=== PATIENT | female | born 1950 | race African-American/Black ===

== ENCOUNTER 2016-12-12 13:32 | Inpatient (IN) | payer MEDICARE, OTHER ==
[~2016-12-12] VITALS: Ht 162.6 cm; Wt 83.5 kg
[~2016-12-12 13:32] MED LIST: CATAPRES0.1 MG PO; CYMBALTA30 MG PO; DILAUDID4 MG PO; DURAGESIC1 PATCH .1 TD; HYDROCHLOROTHIA25 MG PO; K-DUR20 MEQ PO; MAG-OXIDE400 MG PO; MELATONIN 3 MG1 TAB PO; METAMUCIL PACKE1 PKT PO; NORVASC5 MG PO; PROTONIX40 MG PO; QUESTRAN PACK4 G/PKT PO; VALIUM10 MG; ZOCOR20 MG PO
--- NOTE | 2016-12-12 13:35 | NUR ---
RECIEVED ON REHAB TO ROOM 0746X;ORIENTED TO ROOM AND SURROUNDINGS.CL IN REACH.
[2016-12-12] MEDS ORDERED: LIDODERM 5 %1 PATCH TRANSDERM (14:08)
[2016-12-12] MEDS ORDERED: PROZAC40 MG PO (14:10)
[2016-12-12] MEDS ORDERED: PREDNISONE10 MG PO (14:12)
[2016-12-12] MEDS ORDERED: PATOWN MISC (14:18)
[2016-12-12] MEDS ORDERED: MORPHINE SULFAT60 M5 PO (14:23)
[2016-12-12] MEDS ORDERED: OXY IR30 MG PO (14:27)
[2016-12-12] MEDS ORDERED: GABAPENTIN100 MG PO (14:28)
[2016-12-12 16:49] VITALS: BP 97/56; BMI 31.7
[2016-12-12 20:00] VITALS: BP 105/62
--- NOTE | 2016-12-12 20:10 | NUR ---
SIT UP IN BED AND WATCH TV.
--- NOTE | 2016-12-13 01:30 | NUR ---
PT RESTING WITH EYES CLOSED, SEMI SAMUELS POSITION, NO S/S OF ACUTE DISTRESS. RESPIRATIONS REGULAR AND UNLABORED.
--- NOTE | 2016-12-13 01:51 | NUR ---
RESTING QUIETLY IN BED, EYE CLOSE, BED LOW, CALL LIGHT WITHIN REACH.
--- NOTE | 2016-12-13 03:53 | NUR ---
C/O PAIN ON BACK, ON A SCALE OF 8, PAIN MED GIVEN.
[2016-12-13 06:55] LABS: BASOPHILS 0.4 % (0-2); EOSINOPHILS 0.4 % (0-7); HEMATOCRIT 35.2 % (36.0-48.0); IMMATURE GRANULOCYTES 0.1 % (0-5); LYMPHOCYTES 26.5 % (15-50); MCH 30.2 pg (26.0-34.0); MCHC 31.3 g/dL (31.0-37.0); MCV 96.7 fL (80.0-100.0); MEAN PLATELET VOLUME 10.3 fL (7.4-10.4); NEUTROPHILS 64.6 % (40-80); PLATELET COUNT 246 10x3/uL (130-400); RBC 3.64 10x6/uL (4.00-5.40); RDW 15.8 % (11.5-14.5); WBC 7.6 10x3/uL (4.8-10.8)
[2016-12-13 07:12] LABS: ANION GAP 7.4 mmol/L (8-16); CALCIUM 8.3 mg/dL (8.5-10.1); CARBON DIOXIDE 31.6 mmol/L (21.0-32.0)
--- NOTE | 2016-12-13 08:00 | NUR ---
SHIFT ASSMT COMPLETED,DENIES NEEDS.UP IN WC FOR BREAKFAST.CL IN REACH.
[2016-12-13 08:54] VITALS: BP 136/80
[2016-12-13 09:47] VITALS: Ht 162.6 cm; Wt 83.5 kg
--- NOTE | 2016-12-13 12:00 | NUR ---
SITTING UP IN WC.DENIES NEEDS AT PRESENT.
--- NOTE | 2016-12-13 16:00 | NUR ---
denies needs.cl in reach.
[2016-12-13 19:06] VITALS: BP 116/64
--- NOTE | 2016-12-13 19:25 | NUR ---
PT UP TO NURSING STATION, PROPELLED SELF PER W/C. REQUESTED PERSONAL CARE ITEMS, PT SMILES FREELY, CONVERSIVE. RESPIRATIONS REGULAR AND UNLABORED.
--- NOTE | 2016-12-14 01:15 | NUR ---
PT AWAKE IN ROOM SITTING IN WHEELCHAIR, PT REQUESTED A SNACK OF LEMON CHEVAK SODA AND TWO ORANGE SHERBERT, OBTAINED FOR PT. PT IS CONVERSIVE, ALERT AND ORIENTED. PT STATES HER PAIN IS MANAGABLE.
--- NOTE | 2016-12-14 04:31 | NUR ---
PT RESTING QUIETLY IN ROOM, RESPIRATIONS REGULAR AND UNLABORED, EYES CLOSED.
--- NOTE | 2016-12-14 07:47 | NUR ---
RESTING QUIETLY IN BED. EYES CLOSED. CALL LIGHT IN REACH
--- NOTE | 2016-12-14 16:28 | NUR ---
IN W/C ROLLING AROUND IN YARD.
[2016-12-14 16:44] VITALS: BP 130/74
--- NOTE | 2016-12-14 19:48 | NUR ---
pt out of room with visitors.
[2016-12-14 20:32] VITALS: BP 122/70
--- NOTE | 2016-12-15 01:45 | NUR ---
PT AWAKE IN ROOM, PT STATES SHE IS WORRIED AND HAS TO MAKE A DECISION REGARDING MOVING. PT REQUESTED TO BE ABLE TO GO OUTSIDE SO SHE COULD THINK, ASSISTED PT OUTSIDE TO THERAPY DECK. PT STAYED OUT FOR ABOUT 15 MINUTES, STATED SHE WAS ABLE TO CLEAR HER HEAD AND DECIDED THAT HER FOCUS NEEDED TO BE ON REHAB AND SHE WOULD MAKE A DECISION LATER REGARDING DOWNSIZING AND MOVING.
--- NOTE | 2016-12-15 03:34 | NUR ---
PT RESTING QUIETLY IN ROOM, PT RESPIRATIONS REGULAR AND UNLABORED, NO S/S OF ACUTE DISTRESS. EYES CLOSED.
--- NOTE | 2016-12-15 08:22 | NUR ---
SITTING UP IN BED EATING BREAKFAST. CALL LIGHT IN REACH.
--- NOTE | 2016-12-15 12:37 | NUR ---
SITTING UP IN BED EATING LUNCH. DENIES INCREASED PAIN. USES W/C.
[2016-12-15 12:55] VITALS: BP 128/79
--- NOTE | 2016-12-15 18:16 | NUR ---
SITTING UP IN BED WATCHING TV. DENIES NEEDS. CALL LIGHT IN REACH
[2016-12-15 19:15] VITALS: BP 104/63
--- NOTE | 2016-12-15 19:30 | NUR ---
PT UP IN W/C AT SINK IN ROOM. ALERT & ORIENTED. NO O2. NO IV. PT HAS NO COMPLAINTS AT THIS TIME.
--- NOTE | 2016-12-15 23:30 | NUR ---
PT IN BED WITH HOB UP FOR COMFORT. EYES CLOSED. CHEST RISING AND FALLING. BED IN LOWEST POSITION AND CALL LIGHT WITHIN REACH.
--- NOTE | 2016-12-15 23:45 | NUR ---
PT UP IN W/C IN HALLWAY. PT CONVERSIVE, RESPIRATIONS REGULAR AND UNLABORED.
--- NOTE | 2016-12-16 03:30 | NUR ---
PT LYING IN BED. EYES CLOSED. RESPIRATIONS EVEN AND UNLABORED. BED IN LOWEST POSITION AND CALL LIGHT WITHIN REACH.
[2016-12-16 06:25] LABS: BASOPHILS 0.2 % (0-2); EOSINOPHILS 0.1 % (0-7); HEMATOCRIT 38.1 % (36.0-48.0); HEMOGLOBIN 12.1 g/dL (12-16); IMMATURE GRANULOCYTES 0.1 % (0-5); MCH 30.6 pg (26.0-34.0); MCHC 31.8 g/dL (31.0-37.0); MCV 96.5 fL (80.0-100.0); MONOCYTES 6.6 % (2-11); PLATELET COUNT 268 10x3/uL (130-400); RBC 3.95 10x6/uL (4.00-5.40); RDW 15.9 % (11.5-14.5)
[2016-12-16 06:36] LABS: ANION GAP 10.5 mmol/L (8-16); CALCIUM 9.1 mg/dL (8.5-10.1); CARBON DIOXIDE 32.8 mmol/L (21.0-32.0); POTASSIUM - SERUM 4.3 mmol/L (3.5-5.1)
[2016-12-16 08:38] VITALS: BP 116/66
--- NOTE | 2016-12-16 12:12 | NUR ---
SITTING IN W/C EATING LUNCH. DENIES NEEDS
--- NOTE | 2016-12-16 18:04 | NUR ---
SITTING IN W/C EATING SUPPER AND VISITING WITH SON. DR. TORRES WAS CONSULTED FOR THIS PT SINCE DR MELENDEZ NO LONGER PRACTICES MEDICINE IN CLINIC. HE WILL VISIT AGAIN TOMORROW AND READ CHART. PT C/O VAGINAL ODOR.
[2016-12-16 19:00] VITALS: BP 118/58
--- NOTE | 2016-12-16 19:15 | NUR ---
PT UP IN W/C VISITING WITH DAUGHTER. ALERT & ORIENTED. NO O2. NO IV. PT HAS NO COMPLAINTS AT THIS TIME.
--- NOTE | 2016-12-16 23:15 | NUR ---
PT IN BED WITH HOB UP FOR COMFORT. EYES CLOSED. CHEST RISING AND FALLING. BED IN LOWEST POSITION AND CALL LIGHT WITHIN REACH.
--- NOTE | 2016-12-17 01:00 | NUR ---
UP IN W/C AT DESK. SAYS SHE IS GOING TO VENDING ROOM FOR SNACK.
--- NOTE | 2016-12-17 04:45 | NUR ---
PT IN BED WITH HOB UP FOR COMFORT. RESTING QUIETLY. BED IN LOWEST POSITION AND CALL LIGHT WITHIN REACH.
--- NOTE | 2016-12-17 06:50 | NUR ---
Nutrition Follow Up: Pt is eating 79% on a regular diet. +BM 12/17/16. Meds and labs noted. Pt remains at low nutritional risk. RD following.
--- NOTE | 2016-12-17 08:00 | NUR ---
SHIFT ASSMT COMPLETED.DENIES NEEDS.BREAKFAST GIVEN.CL IN REACH.
[2016-12-17 09:27] VITALS: BP 124/75
[2016-12-17 19:05] VITALS: BP 143/71
--- NOTE | 2016-12-17 20:10 | NUR ---
PT. SITTING UP IN HER W/C. NO VOICED NEEDS AT THIS TIME. ASSESSMENT COMPLETED. CALL LIGHT WITHIN REACH.
--- NOTE | 2016-12-17 23:20 | NUR ---
PT. IN BED WITH HOB UP FOR COMFORT WITH EYES CLOSED AND RESP. EVEN. CALL LIGHT WITHIN REACH.
--- NOTE | 2016-12-18 03:07 | NUR ---
PT. UP IN W/C SHE JUST CAME OUT OF THE BR. PT. DENIES ANY NEEDS AND WILL BE GETTING BACK INTO BED SOON.
[2016-12-18 08:00] VITALS: BP 123/62
--- NOTE | 2016-12-18 08:00 | NUR ---
SHIFT ASSMT COMPLETED.DENIES NEEDS.UP IN WC.BREAKFAST GIVEN.
--- NOTE | 2016-12-18 12:00 | NUR ---
DENIES NEEDS.EATING LUNCH.
--- NOTE | 2016-12-18 16:00 | NUR ---
RESTING QUIETLY.CL IN REACH.
--- NOTE | 2016-12-18 17:09 | NUR ---
PATIENT ADMITTED TO REHAB FROM HOME. SHE HAS ALL DME THAT SHE NEEDS AT HOME FOR DISCHARGE. WILL CONTINUE TO FOLLOW WITH PATIENT UNTIL DISCHARGED
[2016-12-18 19:00] VITALS: BP 119/75
--- NOTE | 2016-12-18 19:30 | NUR ---
PT UP IN W/C, TALKING ON PHONE, DENIES ANY NEEDS, RESPIRATIONS REGULAR AND UNLABORED.
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
--- NOTE | 2016-12-19 04:24 | NUR ---
PT AWAKE AND VERBALIZES BEING HUNGRY. PROVIDED MARY CRACKERS AND PUDDING. PT CONVERSIVE. PT REQUESTED 06 MEDICATIONS EARLY ALONG WITH PAIN MED.
--- NOTE | 2016-12-19 08:04 | NUR ---
PT IS RESTING IN BED WITH EYES OPEN. ALERT AND ORIENTED X4. DENIES ACUTE PAIN OR DISCOMFORT AT THIS TIME. NO NEEDS VOICED. PT STATES SHE IS GOING UPSTAIRS FOR A PROCEDURE TOMORROW. SR'S ARE UP X 2 IN BED. CALL LIGHT AND BEDSIDE TABLE ARE WITHIN EASY REACH.
[2016-12-19 08:48] VITALS: BP 110/64
--- NOTE | 2016-12-19 09:54 | NUR ---
PT IS SHOWERING WITH OT. NO ACUTE DISTRESS NOTED.
--- NOTE | 2016-12-19 12:21 | NUR ---
REPORT CALLED TO [facility] PENDING DC AFTER PT EATS HER LUNCH.
--- NOTE | 2016-12-19 13:58 | NUR ---
PATIENT ADMITTED TO ACUTE FLOOR FROM REHAB DUE TO SURGIGAL PROCEDURE.
--- NOTE | 2016-12-19 16:01 | NUR ---
PT RETURNED TO REHAB. DISCHARGE CANCELLED. PT TO REMAIN IN REHAB.
--- NOTE | 2016-12-19 17:21 | NUR ---
PT RESTING, DENIES NEEDS. BED LOW. CL IN REACH.
--- NOTE | 2016-12-19 17:21 | NUR ---
PT RESTING IN BED, DENIES NEEDS. BED
[2016-12-19 18:59] VITALS: BP 113/57
--- NOTE | 2016-12-19 19:20 | NUR ---
PT IN W/C OUT OF ROOM.
--- NOTE | 2016-12-20 02:30 | NUR ---
PT UP IN W/C REQUESTED FOOD FROM VENDING MACHINE, OBTAINED FOR PATIENT. PT STATES SHE IS ALWAYS HUNGRY. NO S/S OF ACUTE DISTRESS. PT STATED SHE WAS GOING TO GET READY FOR BED.
--- NOTE | 2016-12-20 05:12 | NUR ---
PT RESTING QUIETLY, NO S/S OF ACUTE DISTRESS.
--- NOTE | 2016-12-20 08:04 | NUR ---
IN W/C IN ROOM THIS MORNING EATING BREAKFAST. DENIES INCREASED PAIN OR NEEDS. DOES MOST OF ADL'S BY SELF. NO SKIN BREAKDOWN NOTED. CALL LIGHT IN REACH
[2016-12-20 08:06] VITALS: BP 122/69
--- NOTE | 2016-12-20 12:16 | NUR ---
SITTING IN ROOM EATING LUNCH. IS IN A W/C WITH HER FEET DOWN. DENIES NEEDS. IS ALERT AND ORIENTED. NEEDS ASST WITH WALKING. GAIT IS UNBALANCED.
[2016-12-20 19:30] VITALS: BP 116/68
--- NOTE | 2016-12-20 21:45 | NUR ---
SITTING UP AT BEDSIDE. DENIES NEEDS.
--- NOTE | 2016-12-21 01:45 | NUR ---
PT IN BED WITH HOB UP FOR COMFORT. EYES CLOSED. CHEST RISING AND FALLING. BED IN LOWEST POSITION AND CALL LIGHT WITHIN REACH.
--- NOTE | 2016-12-21 01:45 | NUR ---
PT REQUESTING PAIN MED. INFORMED PT SHE CAN HAVE NEXT PAIN MED AT 0231 AND IF THERE IS ANYTHING I COULD DO. PT STATED SHE WOULD LIKE SOME ORANGE SHERBERT ICE CREAM. GAVE PT ORANGE SHERBERT ICE CREAM.
--- NOTE | 2016-12-21 04:06 | NUR ---
PT UP IN W/C. WATCHING TV. CALL LIGHT WITHIN REACH.
[2016-12-21 08:00] VITALS: BP 152/86
--- NOTE | 2016-12-21 08:00 | NUR ---
SHIFT ASSMT COMPLETED.DENIES NEEDS.UP INDEPENDENT IN ROOM.CL IN REACH.MEAL TRAY GIVEN.
--- NOTE | 2016-12-21 12:00 | NUR ---
EATING LUNCH.DENIES NEEDS.
--- NOTE | 2016-12-21 16:00 | NUR ---
HAD BATH.RESTING QUIETLY.DENIES NEEDS.
--- NOTE | 2016-12-21 20:25 | NUR ---
PT. UP IN HER W/C IN HER ROOM. NO VOICED NEEDS AT THIS TIME AND PT. REPORTS SHE'S BEEN HELPING HERSELF BACK IN THE THERAPY TREATMENT KITCHEN TO DRINKS AND SNACKS PRN. ASSESSMENT COMPLETED. CALL LIGHT WITHIN REACH.
[2016-12-21 20:30] VITALS: BP 146/69
--- NOTE | 2016-12-21 23:13 | NUR ---
PT. UP IN HER W/C IN ROOM. HAS JUST COME OUT OF THE BR. NO VOICED NEEDS AT THIS TIME AND HER CALL LIGHT IS WITHIN REACH.
--- NOTE | 2016-12-22 03:13 | NUR ---
PT. IN BED WITH HOB UP FOR COMFORT WITH EYES CLOSED AND RESP. DEEP AND EVEN. CALL LIGHT WITHIN REACH.
[2016-12-22 08:00] VITALS: BP 127/77
--- NOTE | 2016-12-22 08:00 | NUR ---
SLEEPING IN THIS AM.BREAKFAST TRAY GIVEN.DENIES NEEDS.
--- NOTE | 2016-12-22 12:00 | NUR ---
AWAKE FROM NAPPING.CL IN REACH.EATING IN BED.
--- NOTE | 2016-12-22 16:00 | NUR ---
RESTING QUIETLY.CL IN REACH.
[2016-12-22 19:20] VITALS: BP 102/65
--- NOTE | 2016-12-22 20:00 | NUR ---
PT UP IN W/C. ALERT & ORIENTED. NO O2. NO IV. BED/CHAIR ALARM WAIVER.
--- NOTE | 2016-12-22 23:53 | NUR ---
PT AMBULATING IN W/C PROPELS SELF IN HALLWAY. PT SMILES AND LAUGHS FREELY AND IS CONVERSIVE. PT DENIES ANY NEEDS.
--- NOTE | 2016-12-23 03:50 | NUR ---
PT IN BED WITH HOB UP FOR COMFORT. WATCHING TV. BED IN LOWEST POSITION AND CALL LIGHT WITHIN REACH.
[2016-12-23 13:03] VITALS: BP 138/77
--- NOTE | 2016-12-23 19:50 | NUR ---
REST IN BED AND WATCH TV.
--- NOTE | 2016-12-24 01:33 | NUR ---
UP IN WHEELCHAIR PROPELLING SELF AROUND UNIT. PLEASANT AND COOPERATIVE. DENIES ANY PAIN AT THIS TIME.
[2016-12-24 03:29] VITALS: BP 113/65
--- NOTE | 2016-12-24 03:49 | NUR ---
PT SIT IN WHEELCHAIR EAT SNACK.
--- NOTE | 2016-12-24 09:49 | NUR ---
PATIENT DISCHARGING HOME TODAY WITH FAMILY. [facility] WILL FOLLOW WITH PATIENT AT HOME.NO NEW DME NEEDED AT THIS TIME. DR. ROLDAN 01/01/17 @ 10:00, DR. TIMI TORRES OFFICE WILL CALL PATIENT WITH AN APPOINTMENT, INSTRUCTED MRS. DENT TO CALL OFFICE IN 3 DAYS IF NO CALL BACK. PATIENT CHOICE FORM FOR HOME HEALTH AND [facility] FORM SIGNED, EXPLAINED AND FILED IN CHART.
[2016-12-24] MEDS ORDERED: MORPHINE SULFAT60 M5 PO (11:09)
[2016-12-24] MEDS ORDERED: OXY IR30 MG PO (11:09)
--- NOTE | 2016-12-24 14:27 | NUR ---
SITTING IN W/C IN ROOM WAITING ON DAUGHTER TO TO COME GET HER. HAS HAD D/C PAPERS AND INSTRUCTIONS SINCE BEFORE NOON.
[2016-12-24 14:29] VITALS: BP 113/71
--- NOTE | 2016-12-24 14:35 | NUR ---
D/C HOME WTIH DTR AND ALL PERSONAL BELONGINGS. DENIES NEEDS AND QUESTIONS AT TIME OF D/C
== END 2016-12-24 15:52 | disposition home health service (06) | DRG 948 ==
LOC: D.SDCHOLD 13:32 → D.REHAB 13:32 → D.WS 12-19 13:58 → D.REHAB 12-19 13:58 → D.WS 12-19 13:58 → D.REHAB 12-24 15:52
PROVIDERS: ADMIT Emergency Medicine
DX: R53.81 Other malaise (principal); G89.29 Other chronic pain; I10 Essential (primary) hypertension; J44.9 Chronic obstructive pulmonary disease, unspecified; Z91.81 History of falling; K21.9 Gastro-esophageal reflux disease without esophagitis; M06.9 Rheumatoid arthritis, unspecified; E78.2 Mixed hyperlipidemia

== ENCOUNTER → 2017-03-27 13:44 | Outpatient (CLI) | payer MEDICARE, BC ==
[2016-12-13 09:47] VITALS: BMI 31.6
[~2017-03-27 13:44] MED LIST changes: +GABAPENTIN100 MG PO; +LIDODERM 5 %1 PATCH TRANSDERM; +MORPHINE SULFAT60 M5 PO; +OXY IR30 MG PO; +PATOWN MISC; +PREDNISONE10 MG PO; +PROZAC40 MG PO
[2017-03-27 14:26] LABS: BASOPHILS 0.4 % (0-2); EOSINOPHILS 1.8 % (0-7); HEMATOCRIT 38.3 % (36.0-48.0); HEMOGLOBIN 12.1 g/dL (12-16); IMMATURE GRANULOCYTES 0.2 % (0-5); LYMPHOCYTES 41.5 % (15-50); MCH 30.9 pg (26.0-34.0); MCHC 31.6 g/dL (31.0-37.0); MCV 97.7 fL (80.0-100.0); MEAN PLATELET VOLUME 10.3 fL (7.4-10.4); MONOCYTES 8.5 % (2-11); NEUTROPHILS 47.6 % (40-80); PLATELET COUNT 239 10x3/uL (130-400); RBC 3.92 10x6/uL (4.00-5.40); RDW 16.2 % (11.5-14.5); WBC 11.2 10x3/uL (4.8-10.8)
[2017-03-27 14:34] LABS: APTT 27.6 SECONDS (22.8-39.4); INR 0.94 (0.85-1.17); PROTIME 12.4 SECONDS (11.6-15.0)
[2017-03-27 14:47] LABS: APPEARANCE CLEAR (CLEAR); BILIRUBIN NEGATIVE (NEGATIVE); COLOR YELLOW (YELLOW); GLUCOSE NEGATIVE (NEGATIVE); KETONE NEGATIVE (NEGATIVE); NITRITE NEGATIVE (NEGATIVE); PROTEIN NEGATIVE (NEGATIVE); SPECIFIC GRAVITY 1.015 (1.005-1.020); UROBILINOGEN NORMAL (NORMAL)
[2017-03-27 14:54] LABS: ANION GAP 10.8 mmol/L (8-16); CALCIUM 8.7 mg/dL (8.5-10.1); CARBON DIOXIDE 31.3 mmol/L (21.0-32.0); POTASSIUM - SERUM 4.1 mmol/L (3.5-5.1)
== END | disposition home or self-care (01) ==
LOC: D.LAB 13:44
PROVIDERS: Neurological Surgery
DX: G89.4 Chronic pain syndrome (principal)

== ENCOUNTER 2018-09-08 05:25 | Day surgery (SDC) | payer MEDICARE, BC ==
[2018-09-07 11:43] LABS: HEMATOCRIT 39.2 % (36.0-48.0); HEMOGLOBIN 12.7 g/dL (12-16); MCH 31.5 pg (26.0-34.0); MCHC 32.4 g/dL (31.0-37.0); MCV 97.3 fL (80.0-100.0); RBC 4.03 10x6/uL (4.00-5.40); RDW 15.3 % (11.5-14.5); WBC 10.2 10x3/uL (4.8-10.8)
[~2018-09-08] VITALS: Ht 160 cm; Wt 88.0 kg
[~2018-09-08 05:25] MED LIST changes: +BENADRYL25 MG PO; +FUROSEMIDE20 MG PO; +MIRAPEX1 MG PO; +VITAMIN B-12250 MC3 PO; +ZANAFLEX4 MG PO
[2018-09-08 06:14] VITALS: BP 118/84; Ht 160 cm; Wt 88.0 kg
[2018-09-08] MEDS ORDERED: OXYCONTIN10 MG PO ×2 (06:28→06:30)
--- NOTE | 2018-09-08 09:23 | NUR ---
[address] VILLALBA. PROCEDURE DISCUSSED WITH PATIENT. SERVED FULL LIQUID DIET. [employer] REP @ BEDSIDE FOR INTERSTIM TEACHING. Jaron FARLEY R.N.
--- NOTE | 2018-09-08 11:11 | OP ---
PATIENT NAME: KRYSTLE DENT MEDICAL RECORD: [id number] :48 LOCATION:[facility] ADMISSION DATE: SURGEON: EH VILLALBA MD DATE OF OPERATION: 09/08/2018 SURGEON: Eh Villalba MD ANESTHESIA: TIVA by Jarocho Shankar. PREOPERATIVE DIAGNOSIS: Chronic urinary retention with overflow incontinence. PROCEDURE: InterStim stage I on the right S3 nerve root. COMPLICATIONS: None. BLOOD LOSS: None. SPECIMENS: None. CLINICAL HISTORY: This is a 68-year-old female, who has idiopathic urinary retention. When I saw her in 2018, she was on Myrbetriq and I stopped that. She appeared to be voiding better on her own without the Myrbetriq. At that time, she was performing self intermittent catheterization. Now she has issues with urinary incontinence, which sounds like it might be urge incontinence. She is not performing self intermittent catheterization on a regular basis. She wishes to have a trial of InterStim to see if this will improve her voiding. SHE IS ALLERGIC TO ERYTHROMYCIN. We gave her Ancef conveyor belt repairer to the OR. DESCRIPTION OF PROCEDURE: The patient was placed in prone position. She was given IV sedation. She was prepped and draped. Under fluoroscopy, we identified the level of the S3 right sacral foramen and the line of the row of sacral foramina on both sides. This was done using fluoroscopic guidance. The skin overlying the S2 foramen was infiltrated. We placed spinal needles through the S2 overlying skin into the S3 foramen on both sides. We then electrically stimulated both needles and the patient had much more sensitive response on the right side. Also, on the right side, she was feeling the stimulation in the vaginal area, whereas in the left side, she was feeling it primarily in the buttocks. We therefore removed the needle on the left side and used the right S3. A small incision was made at the base of the needle on the skin to allow a trocar dilator to be placed. The stylet of the spinal needle was removed. An extra-long stylet was placed. The spinal needle was then removed, leaving the extra-long stylet in place. Over the extra-long stylet, we placed the trocar dilator. The radiopaque marker was viewed with fluoroscopy going cross body, i.e., transversely, and we placed the radiopaque marker between the 2 tables of the sacral bone. Once the sheath was in correct position, then the trocar and the extra-long stylet were removed. We then introduced a 4-wire electrode, which is the permanent electrode. It has a small bend at the distal end of the electrode, which we had laterally. Each of the channels on the 4-channel electrode was tested. Channel 0 gave a sensation in the anal and perineal area. The remaining 3 channels gave more and more vaginal sensation, especially as we worked towards the channel 2, which gave about the maximum. This was good positioning. We removed the wire stylet from the permanent electrode. The patient has a pain stimulator on the left iliac crest region and therefore we had to use a right iliac crest region to put our connection between the temporary test electrode and the permanent electrode. A 2.5-cm incision was OPERATIVE REPORT [id number] KRYSTLE DENT made here in the right iliac crest region and with finger dissection, a subcutaneous pocket was made. A tunneling device was used to bring the permanent electrode from its insertion site S3 into the pocket. We then made the connection to the temporary test electrode. This was covered with a silicone sheath, which was tied at both ends using 2-0 Prolene ties. This would make the connection watertight. The actual connection was made by tightening down 4 connecting screws with a torque-limiting screwdriver. We then used the tunneling device again to come out just to the left of the midline and this brought the external lead out at this site. The wounds were irrigated out with saline. The incisions were closed using mohini. Dressings were applied. The patient is scheduled for a followup procedure next week. Either we will remove the nerve stimulator lead if the trial was unsuccessful. If the trial is successful, we will proceed to permanent pacemaker implantation. TRANSINT:[id number] Voice Confirmation ID: [id number] DOCUMENT ID: [id number] EH VILLALBA MD at 1111 CC: [id number] DICTATION DATE: 09/08/18907 AIDS SOCIAL WORKER: 09/08/18 1045 [facility] [address] [place] [address]
--- NOTE | 2018-09-08 15:05 | NUR ---
1100 DRESSED, AWAKE & ALERT SITTING UP IN OWN WHEELCHAIR. GIVEN DISCHARGE INFORMATION INCLUDING: RX: NORCO 5/325MG, MED REC., RTC APPT., [facility] OUTPATIENT D/C INSTRUCTIONS. PT VOICED UNDERSTANDING. TO PRIVATE CAR PER OWN WHEELCHAIR BY VOLUNTEER. HOME WITH FRIEND. Jaron FARLEY R.N.
== END 2018-09-08 11:00 | disposition home or self-care (01) ==
LOC: D.OPS 05:25 → D.PAN 07:30 → D.OPS 07:30
PROVIDERS: Anesthesiology; ATTEND Urology
DX: R33.8 Other retention of urine (principal); N39.490 Overflow incontinence; Z88.1 Allergy status to other antibiotic agents; Z01.812 Encounter for preprocedural laboratory examination

== ENCOUNTER 2018-09-15 05:29 | Day surgery (SDC) | payer MEDICARE, BC ==
[~2018-09-15] VITALS: Ht 160 cm; Wt 88.0 kg
[~2018-09-15 05:29] MED LIST changes: +OXYCONTIN10 MG PO
[2018-09-15 05:55] LABS: HEMATOCRIT 36.7 % (36.0-48.0); HEMOGLOBIN 11.7 g/dL (12-16); MCH 30.4 pg (26.0-34.0); MCHC 31.9 g/dL (31.0-37.0); MCV 95.3 fL (80.0-100.0); MEAN PLATELET VOLUME 10.3 fL (7.4-10.4); RBC 3.85 10x6/uL (4.00-5.40); RDW 15.2 % (11.5-14.5); WBC 10.3 10x3/uL (4.8-10.8)
[2018-09-15] MEDS ORDERED: BAYER CHEWABLE81 MG PO (06:15)
[2018-09-15 06:19] VITALS: BP 131/83; Ht 160 cm; Wt 88.0 kg
[2018-09-15 06:24] LABS: CARBON DIOXIDE 28.7 mmol/L (21.0-32.0)
[2018-09-15 07:08] LABS: POTASSIUM - SERUM 4.4 mmol/L (3.5-5.1)
[2018-09-15 07:09] LABS: ANION GAP 9.7 mmol/L (8-16)
--- NOTE | 2018-09-15 08:37 | NUR ---
PER DR. VILLALBA, PATIENT DOES NOT HAVE TO VOID BEFORE LEAVING OUTPATIENT. MV,RN
--- NOTE | 2018-09-15 10:00 | OP ---
PATIENT NAME: KRYSTLE DENT MEDICAL RECORD: [id number] :48 LOCATION:[facility] ADMISSION DATE: SURGEON: EH VILLALBA MD DATE OF OPERATION: 09/15/2018 SURGEON: Eh Villalba MD ANESTHESIA: TIVA by Zelda Walsh CRNA. DIAGNOSES: 1. Chronic urinary retention with overflow urinary incontinence. 2. Urge fecal incontinence. PROCEDURE: InterStim stage II, pacemaker implanted in the right iliac crest region. FINDINGS: Incisions are clean with no signs of infection. SPECIMENS: None. ESTIMATED BLOOD LOSS: None. CLINICAL HISTORY: This is a 68-year-old female who had urinary retention in the past and now she has urinary incontinence, which I suspect is overflow urinary incontinence. She also has fecal incontinence. These have not responded to medical treatment. She had an InterStim trial last week. The stage I trial was quite successful and since the implant was placed on a temporary basis, she only had 4 episodes of urinary incontinence and 1 episode of fecal incontinence, which is much less than she had previously. When I saw her in the office, she was not even feeling the stimulation. She had the stimulator set at 1.2 volts at that time. I increased her power levels to 2.5 volts and she was just barely able to feel the stimulation. She says that since I increased the voltage on the implant the continence has been complete. She no longer has episodes of incontinence at all. She comes today to have the permanent implant placed, which is the stage II. SHE IS ALLERGIC TO ERYTHROMYCIN. She was given Ancef bonding and composite fabricator to the OR. DESCRIPTION OF PROCEDURE: The patient was placed in prone position on the OR table. She was prepped and draped. She was given IV sedation. The mohini from the previous procedure were removed. Her connection between the external lead and the permanent lead is at the right iliac crest region. I infiltrated this incision with lidocaine containing epinephrine and then reopened the incision. Prior to prepping her, we had cut off the excess potion of the external lead where I had exited the skin. This subcutaneous portion of the external lead was then brought out through the wound. The connection between the temporary lead and the permanent lead was disrupted by unscrewing the 4 connecting screws using a screwdriver. The temporary lead was then discarded. To the permanent lead we attached the pacemaker. The pacemaker connection was then made by tightening down the connecting screw with a torque-limiting screwdriver. A subcutaneous pocket was then made just above the gluteal fascia by dissecting bluntly with the fingers. The pacemaker was then implanted into this pocket. We performed programming to check the impedances and all leads were working properly. The pacemaker was working also properly. The wound was then irrigated out with sterile water. We then reapproximated the subcutaneous fat over the implant using simple interrupted 3-0 Vicryl. [place] were used on OPERATIVE REPORT [id number] KRYSTLE DENT the skin and a dressing was applied. I will see her in followup next week to remove the mohini in the office. TRANSINT:[id number] Voice Confirmation ID: [id number] DOCUMENT ID: [id number] EH VILLALBA MD at 1000 CC: [id number] DICTATION DATE: 09/15/18813 PAVING FOREMAN: 09/15/18904 [facility] [place] 09/15/18 [id number] [place] [address]
== END 2018-09-15 09:40 | disposition home or self-care (01) ==
LOC: D.OPS 05:29 → D.PAN 07:30 → D.OPS 07:30
PROVIDERS: Anesthesiology; ATTEND Urology
DX: R33.8 Other retention of urine (principal); N39.490 Overflow incontinence; R15.2 Fecal urgency; Z01.812 Encounter for preprocedural laboratory examination

== ENCOUNTER 2019-04-29 09:00 | Outpatient (CLI) | payer MEDICARE, BC ==
[2018-09-15 06:19] VITALS: BMI 34.4
[~2019-04-29 09:00] MED LIST changes: +BAYER CHEWABLE81 MG PO
== END 2019-04-29 10:00 | disposition home or self-care (01) ==
LOC: D.MAMMO 09:00
PROVIDERS: ATTEND Emergency Medicine
DX: Z12.31 Encounter for screening mammogram for malignant neoplasm of breast (principal)